=== PATIENT | female | born 1990 | race Caucasian/White ===

== ENCOUNTER 2018-04-19 12:34 | Inpatient (IN) | payer OTHER ==
[~2018-04-19] VITALS: Ht 170.2 cm; Wt 100.2 kg
[2018-04-19 13:01] LABS: Urine Bacteria MOD /hpf (None Seen); Urine Blood Negative /uL (Negative); Urine Mucus FEW (None Seen); Urine Specific Gravity 1.016 (1.001-1.035); Urine WBC 1 /hpf (0 - 5)
[2018-04-19 13:40] LABS: Basophils # (auto) 0 uL; Basophils % (auto) 0.5 % (0.0-2.0); Eosinophils # (auto) 0.1 uL; Eosinophils % (auto) 0.9 % (0.0-7.0); Hematocrit 41.2 % (36.0-46.0); Lymphocytes # (auto) 1.4 uL; Lymphocytes % (auto) 20.6 % (10.0-50.0); Mean Corpuscular Hemoglobin 32.5 pg (28.0-32.0); Mean Corpuscular Hgb Conc. 33.9 g/dL (32.0-36.0); Mean Corpuscular Volume 95.8 fL (80.0-100.0); Monocytes # (auto) 0.6 uL; Neutrophils # (auto) 4.8 uL; Nucleated Red Blood Cells % 0.1 %; Platelet Count (auto) 338 10^3/uL (140-450); Red Cell Distribution Width 12.9 % (11.8-14.3)
[2018-04-19 14:06] LABS: Albumin 3.8 g/dL (3.4-5.0); Calcium 9.1 mg/dL (8.5-10.1)
[2018-04-19 14:12] LABS: Bilirubin, Total 0.6 mg/dL (0.2-1.0); Total Protein 7.9 g/dL (6.4-8.2)
[2018-04-19] MEDS ORDERED: SODIUM CHLORIDE 0.9% 1,000 ML IVB ONE (15:22)
[2018-04-19] MEDS ORDERED: ONDANSETRON HCL 4 MG/2 ML VIAL IV ONE (16:00)
[2018-04-19] MEDS ORDERED: MORPHINE SULFATE 4 MG/ML SYR/VIAL IV PRN (18:45)
[2018-04-19] MEDS ORDERED: NITROGLYCERIN 0.4 MG SL TAB SL PRN (18:45)
[2018-04-19] MEDS: LACTATED RINGER'S 1,000 ML IV SCH (19:01)
[2018-04-19] MEDS: ceFAZolin 1GM/50ML 50 ML IV SCH (22:20)
[2018-04-19 22:30] VITALS: BP 116/63
[2018-04-19 22:33] VITALS: BP 116/63
[2018-04-19] MEDS: PROMETHAZINE HCL 25 MG/ML 1ML IV PRN (23:39)
[2018-04-20] MEDS: LACTATED RINGER'S 1,000 ML IV SCH ×2 (03:59→11:22)
[2018-04-20 04:56] VITALS: BP_SYST 147; BP_SYST 175; BP_DIAS 71; BP_DIAS 85
[2018-04-20] MEDS: ceFAZolin 1GM/50ML 50 ML IV SCH (05:56)
[2018-04-20] MEDS: PROMETHAZINE HCL 25 MG/ML 1ML IV PRN (07:20)
[2018-04-20] MEDS ORDERED: LEV50T PO (07:53)
[2018-04-20] MEDS ORDERED: POTA10TA51 PO (07:53)
[2018-04-20] MEDS ORDERED: FURO20TA3 PO (07:53)
[2018-04-20 09:00] VITALS: BP 113/57
[2018-04-20 13:00] VITALS: BP 111/62
== END 2018-04-20 15:42 | disposition home or self-care (01) | DRG 832 ==
LOC: ER 12:34 → OVERFLOW 12:35 → WEST WING 21:10
PROVIDERS: ADMIT Obstetrics & Gynecology; ATTEND Obstetrics & Gynecology
DX: O21.1 Hyperemesis gravidarum with metabolic disturbance (principal); O23.41 Unspecified infection of urinary tract in pregnancy, first trimester; O34.01 Maternal care for unspecified congenital malformation of uterus, first trimester; Q51.3 Bicornate uterus; Z3A.01 Less than 8 weeks gestation of pregnancy; Z82.49 Family history of ischemic heart disease and other diseases of the circulatory system
CPT/HCPCS: 36415; 76801; 76817; 80053; 81001; 82150; 83690; 84702; 85025; 94761; 96361; 96365; 96375; J0690; J2405